=== PATIENT | male | born 1995 | race Caucasian/White ===

== ENCOUNTER 2018-11-09 16:17 | Emergency (ER) | payer OTHER ==
--- NOTE | 2018-11-09 16:23 | EDPHY ---
General Time Seen by Provider: 11/09/18 16:22 Narrative: CLINICAL IMPRESSION: Sebaceous cyst, mild cellulitis ASSESSMENT/PLAN: Patient is a 23-year-old male who is currently incarcerated, brought in by the police department for a wound check of his left 4th digit. Patient is not toxic appearing, he is in no distress. Physical examination reveals open wound to the proximal phalanx of the left 4th digit, palmar aspect; cyst capsule visible from opening, completely removed by expressing the cavity- cyst capsule completely intact. The wound was irrigated and dressed. There is some mild overlying erythema consistent with mild cellulitis. There was no evidence of abscess, deep structure involvement, compartment syndrome, neurovascular compromise, necrotizing skin infection or tenosynovitis (he had no pain along the tendon sheath, no pain with passive range of motion). The patient complained of feeling mildly nauseous, he was given oral Zofran and was able to tolerate p.o.. I do not suspect systemic infection. He was given his 1st dose of antibiotics in the emergency department and will continue Keflex and Bactrim for the next 7 days. His tetanus status is up-to-date. On repeat exam he is well-appearing, reports that he is feeling better. He will be discharged back to [facility]. Return precautions discussed- he will return for increased pain, signs of infection, fever, vomiting, increased redness, fever, purulent drainage, hand pain or for any other concerns. Patient verbalizes understanding and is in agreement with plan. DIFFERENTIAL DIAGNOSIS: Differential diagnosis includes but not limited to and in no certain order abscess, necrotizing skin infection, cellulitis, deep space infection, traumatic injury, tenosynovitis CHIEF COMPLAINT: Open wound, possible wound infection HPI: Patient is a Malagasy-speaking only male brought in by the police department from [facility] with complaints of possible left finger infection. Patient reports several months ago he started to notice a bump on the palmar aspect of his left ring finger. It has been nontender, he denies any decreased range of motion of the finger or redness. Last Saturday he was seen and evaluated while incarcerated for possible infection, the area was reportedly incised and drained and he has been applying topical cream. He denies any purulent drainage or decreased range of motion. It is mildly tender at the site that is open. He denies any numbness or tingling of the digit. He was sent here for further evaluation. He denies any fevers or chills, reports feeling mildly nauseous with inability to keep food down today. He denies any chest pain, shortness of breath or abdominal pain. He has had no urinary symptoms and bowel movements have been normal. PAST MEDICAL HISTORY: Denies Social History: Incarcerated, denies alcohol, illicit drug use or smoking REVIEW OF SYSTEMS: All other systems negative Constitutional: No fever, no chills Musculoskeletal: No deformity, no joint pain Skin: Open wound left ring finger Neurological: No sensory loss or weakness. PHYSICAL EXAM: General Appearance: Alert, oriented, appropriate for age, cooperative, NAD, well hydrated, non-toxic appearing, VSS, no hypoxia. Neurological: Alert and oriented x 3 Skin: Open wound to left ring finger, palmar aspect of the proximal phalanx with exposed cyst capsule. There is overlying mild erythema, cyst expressed completely intact without difficulty. Upper Extremities: See skin exam above. The left ring finger is tender at the open wound site only. He has full range of motion. He has no pain with passive or active range of motion, no pain along the tendon sheath. There is no erythema extending into the hand, he has no palmar tenderness. Two point discrimination is intact distally. Left upper extremity otherwise unremarkable, right upper extremity nontender with full range of motion. Radial pulse 2 +bilaterally. Lower Extremities: Intact distal pulses, No edema, No tenderness, No cyanosis, full range of motion intact, No calf tenderness bilaterally. MEDICAL DECISION MAKING: Patient was seen independently. Secondary supervising physician at time of evaluation was Dr. Simmons, he did not evaluate this patient. Diagnosis: Sebaceous cyst, mild cellulitis. New, requires workup Summary: See assessment and plan for summary of ED visit Clinical lab tests: Not applicable. Independent visualization of images, tracing, or specimens: Not applicable. Decision to obtain medical records or history from someone other than the patient: Paperwork from [facility] Review / Summarize previous medical records: Yes Discussed patient with another provider: Yes, Dr. Simmons - Objective Vital Signs: Initial Vital Signs Temperature (C) 37.3 C 11/09/18 16:20 Heart Rate 97 11/09/18 16:20 Respiratory Rate 16 11/09/18 16:20 Blood Pressure 145/95 H 11/09/18 16:20 O2 Sat (%) 95 11/09/18 16:20 O2 Delivery Mode Room Air Allergies/Adverse Reactions: No Known Allergies Allergy (Unverified 11/09/18 16:20) Home Medications: Medication Instructions Recorded Cephalexin [Keflex (*)] 500 mg PO Q6H #28 cap 11/09/18 Sulfamethox/Tmp 800/160 mg 1 tab PO BID #14 tab 11/09/18 [Bactrim Ds] Medications Given: Discontinued Medications Cephalexin HCl (Keflex) 500 mg PO EDNOW ONE PRN Reason: Protocol Stop: 11/09/18 16:36 Last Admin: 11/09/18 17:11 Dose: 500 mg Ondansetron HCl (Zofran Odt) 4 mg PO EDNOW ONE Stop: 11/09/18 16:32 Last Admin: 11/09/18 16:36 Dose: 4 mg Trimethoprim/Sulfamethoxazole (Bactrim Ds) 1 ea PO EDNOW ONE PRN Reason: Protocol Stop: 11/09/18 16:36 Last Admin: 11/09/18 17:11 Dose: 1 ea Departure - Departure Disposition: Law Enforcement/Court/Residential Clinical Impression: Sebaceous cyst of finger Cellulitis Qualifiers: Site of cellulitis: unspecified site Qualified Code(s): L03.90 - Cellulitis, unspecified Condition: Good Instructions: Cellulitis (ED) Additional Instructions: DISCHARGE INSTRUCTIONS FROM YOUR DOCTOR Thank you for visiting our emergency department today. Please keep in mind that discharge from the emergency department does not mean that there is nothing wrong - it simply means that we have not identified an emergency condition that requires further evaluation or treatment in the hospital. Yo Rest, drink plenty of fluids, healthy foods, all to to help your immune system fight the infection and to help the healing process. Keep the wound area clean. Wear loose clothing. Clean the wound areas with soap and water. Change the dressings at least twice daily and/or when soiled. Apply clean, warm compresses as much as possible. Elevate the affected limb as much as possible above the level of the heart. Keflex (antibiotic) as prescribed four times daily, for the next 7 days. Bactrim DS (antibiotic) twice daily as prescribed for the next 7 days. Consume yogurt and take over the counter probiotics to help prevent diarrhea from the antibiotics. For pain control: You may take Tylenol, I recommend 500-1000 mg every 6-8 hours as needed. Take with food and a full glass of water. Stop taking if this is upsetting her stomach. Do not exceed 4000 mg in a 24 hr period. You may also take ibuprofen, recommend 400 mg every 6 hr. Take with food and a full glass of water. Stop taking if this upsets her stomach. Do not exceed 2400 mg in a 24 hr period. Continue your regular medications as prescribed. Schedule a follow-up appointment with your primary care physician in the next 24 -48 hours for a wound check to ensure you are healing and don't require further antibiotics or intervention. Return for persistent or recurrent fever, vomiting, inability to tolerate the antibiotic(s) by mouth, redness, swelling, warmth, or streaking around the wound , new lesions, extremity swelling, pain out of proportion to what you would expect for this infection, chest or abdominal pain, vomiting, throat tightness, facial swelling, difficulty breathing or swallowing, sores in the mouth or the eyes, or for any other new, worsening or worrisome symptoms. People present with illnesses and injuries in different ways, and it is always possible that we have missed something. You may always return for re-evaluation if symptoms worsen or if they are not improving or if you develop new/different symptoms. Again, thank you for choosing our emergency department. We hope that you feel better. Viraj por visitar nuestro departamento de emergencias hoy. Tenga en cuenta que el tristan del departamento de emergencias no significa que no exista nada ismael , simplemente significa que no hemos identificado nicky condicin de emergencia que requiera nicky evaluacin o tratamiento adicional en el hospital. Descanse, tiny muchos lquidos, alimentos saludables, todo para ayudar a monreal sistema inmunologico a combatir la infeccin y ayudar al proceso de curacin. Mantenga el kathleen de la herida limpia. Use ropa suelta. Limpie las reas de la herida con agua y jabn. Cambie los vendajes por lo menos dos veces al da y/o cuando se ensucie. Aplique compresas limpias y clidas tanto briana sea posible. Eleve la extremidad afectada tanto briana sea posible por encima del nivel del corazn. Keflex (antibitico) briana se prescribe cuatro veces al da, para los prximos 7 waddell. Bactrim DS (antibitico) dos veces al da segn lo prescrito para los prximos 7 waddell. Consumir yogur y probiticos sin receta para ayudar a prevenir la diarrea de los antibiticos. Para el control del dolor: Usted puede adrienne Tylenol, recomiendo 500-1000 mg cada 6-8 horas segn sea necesario. Adrienne con comida y un vaso lleno de agua. Lilli de adrienne si esto le est irritando el estmago. No exceda 4000 mg en un perodo de 24 horas. Tambin puede adrienne ibuprofeno, recomendar 400 mg cada 6 horas. Adrienne con comida y un vaso lleno de agua. Lilli de adrienne si esto molesta monreal estmago. No exceda 2400 mg en un perodo de 24 horas. Contine con micki medicamentos regulares segn lo prescrito. Programe nicky deandre de seguimiento con monreal mdico de atencin primaria en las pr ximas 24-48 horas para nicky comprobacin de la herida para asegurarse de que est curando y no necesita ms antibiticos o intervencin. Retorno para la fiebre persistente o recurrente, vmitos, incapacidad para tolerar el antibitico (s) por la boca, enrojecimiento, hinchazn, calor o rohan alrededor de la herida, nuevas lesiones, hinchazn de las extremidades, dolor fuera de proporcin a lo que se espera de esta infeccin, dolor torcico o abdominal, vmitos, opresin en la garganta, hinchazn facial, dificultad para respirar o tragar, llagas en la boca o los ojos, o para cualquier otro s ntoma nuevo, agravante o preocupante. Las personas presentan enfermedades y lesiones de diferentes maneras, y siempre es posible que hayamos perdido algo. Usted siempre puede regresar para la reevaluacin si los sntomas empeoran o si no estn mejorando o si desarolla sintomas nuevos o diferentes. Nuevamente, viraj por elegir nuestro departamento de emergencias. Esperamos que te sienta mejor. Referrals: NONE *PRIMARY CARE P,. [Primary Care Provider] - As per Instructions Prescriptions: Cephalexin [Keflex (*)] 500 mg PO Q6H #28 cap Sulfamethox/Tmp 800/160 mg [Bactrim Ds] 1 tab PO BID #14 tab Print Language: Malagasy
[2018-11-09] MEDS ORDERED: ONDANSETRON DISINTEGRATING 4 MG TAB PO ONE (16:31)
[2018-11-09] MEDS ORDERED: SULFAMETHOX/TMP 800/160 MG 1 TAB PO ONE (16:35)
[2018-11-09] MEDS ORDERED: CEPHALEXIN 500 MG CAP PO ONE (16:35)
[2018-11-09 17:11] VITALS: BP 131/81
== END 2018-11-09 17:37 ==
DX: L72.3 Sebaceous cyst (principal); L03.90 Cellulitis, unspecified